=== PATIENT | female | born 1970 | race Caucasian/White ===

== ENCOUNTER 2017-11-03 15:50 | Emergency (ER) | payer SELFPAY ==
[~2017-11-03] VITALS: Ht 175.3 cm; Wt 95.7 kg
[2017-11-03 16:02] VITALS: BP 155/101; PULSE 95; RESP 18; TEMP 99.3; O2SAT 100
[2017-11-03] MEDS ORDERED: SODIUM CHLOR 0.9% 1000 ML INJ 1,000 ML IV SCH (16:10)
--- NOTE | 2017-11-03 16:14 | PD ---
HPI Chief Complaint: Abdominal Pain Time Seen by Provider: 16:10 Travel History International Travel<30 days: No Contact w/Intl Traveler<30days: No Traveled to known affect area: No History of Present Illness HPI 47-year-old female patient with history of previous , presents to the ER today because of 1 day history of left lower quadrant abdominal pain which she currently is stating is a 8 out of 10 constant pain. She has been nauseous. She denies any diarrhea, fevers, urinary symptoms, or any other symptoms. She denies any previous history of this pain. Worse with movement. Modifying Factors: None Associated Signs & Symptoms: left lower quadrant abdominal pain Risk Factors: None PFSH Past Medical History ?: Not Social History Tobacco Use: No Allergies-Medications (Allergen,Severity, Reaction): Coded Allergies: No Known Allergies (Unverified , 11/03/17) Reported Meds & Prescriptions Reported Meds & Active Scripts Active No Active Prescriptions or Reported Medications Review of Systems Except as stated in HPI: all other systems reviewed are Neg Physical Exam Narrative GENERAL: Well-developed middle-aged female patient currently mild distress. Awake and oriented 3. SKIN: Focused skin assessment warm/dry. HEAD: Atraumatic. Normocephalic. EYES: Pupils equal and round. No scleral icterus. No injection or drainage. ENT: No nasal bleeding or discharge. Mucous membranes pink and moist. NECK: Trachea midline. No JVD. CARDIOVASCULAR: Regular rate and rhythm. No murmur appreciated. RESPIRATORY: No accessory muscle use. Clear to auscultation. Breath sounds equal bilaterally. GASTROINTESTINAL: Abdomen soft, left lower quadrant tenderness without guarding rebound , nondistended. Hepatic and splenic margins not palpable. MUSCULOSKELETAL: No obvious deformities. No clubbing. No cyanosis. No edema. NEUROLOGICAL: Awake and alert. No obvious cranial nerve deficits. Motor grossly within normal limits. Normal speech. PSYCHIATRIC: Appropriate mood and affect; insight and judgment normal. Data Data Last Documented VS Vital Signs Date Time Temp Pulse Resp B/P (MAP) Pulse Ox O2 Delivery O2 Flow Rate FiO2 11/03/17 17:22 72 20 140/92 (108) 100 11/03/17 16:02 99.3 Orders Orders Complete Blood Count With Diff (11/03/17 16:10) Comprehensive Metabolic Panel (11/03/17 16:10) Lipase (11/03/17 16:10) Urinalysis - C+S If Indicated (11/03/17 16:10) Ct Abd/Pel W Iv Contrast(Rout) (11/03/17 16:10) Iv Access Insert/Monitor (11/03/17 16:10) Ecg Monitoring (11/03/17 16:10) Oximetry (11/03/17 16:10) Ondansetron Inj (Zofran Inj) (11/03/17 16:15) Sodium Chlor 0.9% 1000 Ml Inj (Ns 1000 M (11/03/17 16:10) Sodium Chloride 0.9% Flush (Ns Flush) (11/03/17 16:15) Ketorolac Inj (Toradol Inj) (11/03/17 16:15) Iohexol 350 Inj (Omnipaque 350 Inj) (11/03/17 17:37) Ed Discharge Order (11/03/17 18:08) Labs Laboratory Tests Test 11/03/17 16:25 White Blood Count 10.0 TH/MM3 Red Blood Count 4.36 MIL/MM3 Hemoglobin 11.0 GM/DL Hematocrit 35.1 % Mean Corpuscular Volume 80.6 FL Mean Corpuscular Hemoglobin 25.3 PG Mean Corpuscular Hemoglobin Concent 31.4 % Red Cell Distribution Width 15.2 % Platelet Count 481 TH/MM3 Mean Platelet Volume 7.2 FL Neutrophils (%) (Auto) 81.3 % Lymphocytes (%) (Auto) 11.5 % Monocytes (%) (Auto) 6.4 % Eosinophils (%) (Auto) 0.5 % Basophils (%) (Auto) 0.3 % Neutrophils # (Auto) 8.1 TH/MM3 Lymphocytes # (Auto) 1.2 TH/MM3 Monocytes # (Auto) 0.6 TH/MM3 Eosinophils # (Auto) 0.1 TH/MM3 Basophils # (Auto) 0.0 TH/MM3 CBC Comment DIFF FINAL Differential Comment Urine Color YELLOW Urine Turbidity CLEAR Urine pH 5.5 Urine Specific Anderson 1.021 Urine Protein NEG mg/dL Urine Glucose (UA) NEG mg/dL Urine Ketones TRACE mg/dL Urine Occult Blood NEG Urine Nitrite NEG Urine Bilirubin NEG Urine Leukocyte Esterase TRACE Urine RBC 0-3 /hpf Urine WBC 3-5 /hpf Urine Squamous Epithelial Cells 0-5 /hpf Urine Mucus MOD /lpf Microscopic Urinalysis Comment CULT NOT INDICATED Blood Urea Nitrogen 8 MG/DL Creatinine 0.79 MG/DL Random Glucose 87 MG/DL Total Protein 7.7 GM/DL Albumin 3.6 GM/DL Calcium Level 9.1 MG/DL Alkaline Phosphatase 77 U/L Aspartate Amino Transf (AST/SGOT) 14 U/L Alanine Aminotransferase (ALT/SGPT) 27 U/L Total Bilirubin 0.4 MG/DL Sodium Level 138 MEQ/L Potassium Level 3.5 MEQ/L Chloride Level 105 MEQ/L Carbon Dioxide Level 24.4 MEQ/L Anion Gap 9 MEQ/L Estimat Glomerular Filtration Rate 77 ML/MIN Lipase 133 U/L [facility] Medical Decision Making Medical Screen Exam Complete: Yes Emergency Medical Condition: Yes Medical Record Reviewed: Yes Interpretation(s) Laboratory Tests Test 11/03/17 16:25 Hemoglobin 11.0 GM/DL (11.6-15.3) Mean Corpuscular Hemoglobin 25.3 PG (27.0-34.0) Mean Corpuscular Hemoglobin Concent 31.4 % (32.0-36.0) Platelet Count 481 TH/MM3 (150-450) Neutrophils (%) (Auto) 81.3 % (16.0-70.0) Neutrophils # (Auto) 8.1 TH/MM3 (1.8-7.7) Urine Ketones TRACE mg/dL (NEG) Urine Leukocyte Esterase TRACE (NEG) Urine Mucus MOD /lpf (OCC) Aspartate Amino Transf (AST/SGOT) 14 U/L (15-37) Estimat Glomerular Filtration Rate 77 ML/MIN (>89) Differential Diagnosis Left lower quadrant abdominal pain: Renal colic versus gastroenteritis versus diverticulitis Narrative Course Lab work did not show significant metabolic issues or obvious UTI. CAT scan did show bilateral small ovarian cyst. However, there were no signs of acute intra-abdominal processes. At this point, it is uncertain what is causing the pain but I do not see any signs of acute processes and my plan would be to release her with symptomatic relief for pain. Follow-up with primary care doctor. Return for worsening in symptoms as necessary. The plan was discussed with her and she states understanding. Diagnosis Primary Impression: Abdominal pain Med/Other Pt SpecificInfo: Prescription(s) given Scripts Ondansetron Odt (Zofran Odt) 4 Mg Tab 4 MG SL Q6HR Y for Nausea/Vomiting, #7 TAB 0 Refills Prov: Teddy Ellis MD 11/03/17 Ibuprofen (Ibuprofen) 600 Mg Tab 600 MG PO Q6H Y for PAIN, #20 TAB 0 Refills Prov: Teddy Ellis MD 11/03/17 Disposition: 01 DISCHARGE HOME Condition: Stable Teddy Ellis MD Nov 03, 2017 16:14
[2017-11-03] MEDS ORDERED: SODIUM CHLORIDE 0.9% FLUSH 10 ML FLUSH IV FLUSH PRN (16:15)
[2017-11-03] MEDS ORDERED: KETOROLAC TROMETHAMINE 30 MG/ML (IVP) VIAL IVP ONE (16:15)
[2017-11-03] MEDS ORDERED: ONDANSETRON HCL 4 MG/2 ML VIAL IVP ONE (16:15)
[2017-11-03 16:30] VITALS: O2SAT 98
[2017-11-03 16:42] LABS: AUTOMATED NEUTROPHIL # 8.1 TH/MM3 (1.8-7.7); BASOPHIL % 0.3 % (0.0-2.0); EOSINOPHIL # 0.1 TH/MM3 (0-0.4); EOSINOPHIL % 0.5 % (0.0-4.0); HEMATOCRIT 35.1 % (35.0-46.0); LYMPH % 11.5 % (9.0-44.0); LYMPHOCYTE # 1.2 TH/MM3 (1.0-4.8); MEAN CELL VOLUME 80.6 FL (80.0-100.0); MEAN CORPUSCULAR HEMOGLOBIN 25.3 PG (27.0-34.0); MEAN CORPUSCULAR HGB CONC 31.4 % (32.0-36.0); MEAN PLATELET VOLUME 7.2 FL (7.0-11.0); MONO % 6.4 % (0.0-8.0); MONOCYTE # 0.6 TH/MM3 (0-0.9); NEUT % 81.3 % (16.0-70.0); PLATELET COUNT 481 TH/MM3 (150-450); RED BLOOD COUNT 4.36 MIL/MM3 (4.00-5.30); RED CELL DISTRIBUTION WIDTH 15.2 % (11.6-17.2)
[2017-11-03 16:53] LABS: BILIRUBIN, URINE NEG (NEG); BLOOD, URINE NEG (NEG); CHLORIDE 105 MEQ/L (98-107); GLUCOSE,URINE NEG (NEG); KETONE, URINE TRACE mg/dL (NEG); NITRITE,URINE NEG (NEG); PH, URINE 5.5 (5.0-8.5); SODIUM (NA) 138 MEQ/L (136-145); URINE LEUKOCYTE ESTERASE TRACE (NEG)
[2017-11-03 16:56] LABS: ALBUMIN 3.6 GM/DL (3.4-5.0); BICARBONATE 24.4 MEQ/L (21.0-32.0); CALCIUM 9.1 MG/DL (8.5-10.1); GLUCOSE,RANDOM 87 MG/DL (74-106)
[2017-11-03 16:57] LABS: BLOOD UREA NITROGEN 8 MG/DL (7-18)
[2017-11-03 16:59] LABS: ALT (GPT) 27 U/L (10-53); AST (GOT) 14 U/L (15-37)
[2017-11-03 17:00] LABS: CREATININE 0.79 MG/DL (0.50-1.00); GLOMERULAR FILTRATION RATE 77 ML/MIN (>89)
[2017-11-03 17:01] LABS: TOTAL BILIRUBIN ADULT 0.4 MG/DL (0.2-1.0); TOTAL PROTEIN 7.7 GM/DL (6.4-8.2)
[2017-11-03 17:02] LABS: ALKALINE PHOSPHATASE 77 U/L (45-117)
[2017-11-03 17:05] LABS: MUCUS URINE MOD /lpf (OCC); URINE COLOR YELLOW (YELLW/STRAW)
[2017-11-03 17:06] LABS: RBC, URINE 0-3 /hpf (0-3); SQUAMOUS EPITHELIAL CELL URINE 0-5 /hpf (0-5)
[2017-11-03 17:22] VITALS: BP 140/92; PULSE 72; RESP 20; O2SAT 100
[2017-11-03] MEDS ORDERED: IOHEXOL 350 MG/ML 10 ML VIAL (for RAD DIAG) IVCONTRAST ONE ×2 (17:32→17:37)
--- NOTE | 2017-11-03 17:58 | RADRPT ---
EXAM DATE/TIME: 11/03/2017 17:27 [facility] COMPARISON: No previous studies available for comparison. INDICATIONS : Left lower quadrant pain. IV CONTRAST: 95 cc Omnipaque 350 (iohexol) IV ORAL CONTRAST: No oral contrast ingested. RADIATION DOSE: 20.32 CTDIvol (mGy) MEDICAL HISTORY : None SURGICAL HISTORY : section. Tubal ligation. ENCOUNTER: Initial ACUITY: 1 day PAIN SCALE: 8/10 LOCATION: Left lower quadrant TECHNIQUE: Volumetric scanning of the abdomen and pelvis was performed. Using automated exposure control and ad justment of the mA and/or kV according to patient size, radiation dose was kept as low as reasonably achievable to obtain optimal diagnostic quality images. DICOM format image data is available electro nically for review and comparison. FINDINGS: LOWER LUNGS: The visualized lower lungs are clear. LIVER: Diffusely decreased hepatic density without volume loss or intrahepatic ductal dilatation. No gross f ocal mass. Gallbladder is unremarkable by CT. SPLEEN: Normal size without lesion. PANCREAS: Within normal limits. KIDNEYS: Sub-centimeters cystic lesions in the kidneys bilaterally which are too small to fully characterize. Punctate calyceal calculus in the superior pole the left kidney. No hydronephrosis. ADRENAL GLANDS: Within normal limits. VASCULAR: There is no aortic aneurysm. BOWEL/MESENTERY: Limited evaluation due to lack of oral contrast. However, no significant acute abnormality or evidenc e for obstruction. Mild scattered colonic diverticula. Appendix is in the upper limits of normal in s ize but otherwise grossly unremarkable. ABDOMINAL WALL: Within normal limits. RETROPERITONEUM: There is no lymphadenopathy. BLADDER: No wall thickening or mass. REPRODUCTIVE: Suspect bilateral ovarian cysts measuring 3.6 cm on the right and 2.3 cm on the left. Trace free flui d in the deep pelvis. INGUINAL: There is no lymphadenopathy or hernia. MUSCULOSKELETAL: Within normal limits for patient age. CONCLUSION: 1. Suspect bilateral small ovarian cysts measuring 3.6 cm on the right and 2.3 cm on the left. Genera lly, simple ovarian cysts that are less than 5 cm do not require followup or additional imaging altho ugh CT examination does not evaluate the ovaries completely. 2. Trace free fluid in the pelvis, may be physiologic. 3. Punctate nonobstructing calyceal calculus in the superior pole of the left kidney. 4. Normal appendix. Gage Shafer MD on November 03, 2017 at 17:50 Board Certified Radiologist. This report was verified electronically.
[2017-11-03] MEDS ORDERED: ZOFR4TAB3 SL (18:11)
[2017-11-03] MEDS ORDERED: IBUP-232 PO (18:11)
== END 2017-11-03 18:32 | disposition home or self-care (01) ==
LOC: PHED 15:50
DX: R10.32 Left lower quadrant pain (principal); R11.0 Nausea; N83.201 Unspecified ovarian cyst, right side; N83.202 Unspecified ovarian cyst, left side
CPT/HCPCS: 74177; 80053; 81001; 83690; 85025; 96374; 96375; 99284; J1885; J2405; J7030; Q9967